=== PATIENT | female | born 1960 | race African-American/Black ===

== ENCOUNTER 2016-07-28 14:07 | Emergency (ER) | payer BC ==
[~2016-07-28 14:07] MED LIST: ACET500CAP PO; ASAB PO; CLARIT10 PO; FLONASE NAS; FLOVENT220 INH; FLOVENT44 INH; HYDROCHLOROT25 MG PO; HYDROCORT12 TOP; KEPPRA XR500 MG PO; KEPPRA1000 MG PO; KEPPRA500 PO; LAMICTAL10 PO; LOTE40 PO; LOTREL1 CA5 PO; NASONEX NAS; NEUR100 PO; NORCO1 TA1 PO; NORCO1 TAB PO; PREM625 PO; PROVENTSOL INH; PROVHFA INH; SYSTANE ULTR OPH; TEARS NATURA OPH; TUMS E-X750 M2 PO; VENTOLIN HFA INH; VIB50 PO; ZANTAC 150 PO; ZANTAC150 MG PO; ZANTAC300 MG PO
[2016-07-28 14:48] LABS: BASOPHILS 0.2 %; BASOPHILS ABSOLUTE 0.01 10/3/uL (0.0-0.16); EOSINOPHILS 3.9 %; HEMATOCRIT 32.9 % (36.0-48.0); HEMOGLOBIN 10.9 g/dL (12.0-16.0); IMMATURE GRANULOCYTES 0.2 %; IMMATURE GRANULOCYTES ABSOLUTE 0.01 10/3/uL (0.0-0.11); LYMPHOCYTES 29.3 %; LYMPHOCYTES ABSOLUTE 1.52 10/3/uL (0.67-4.30); MEAN CORPUS HGB CONC 33.1 g/dL (32.0-36.0); MEAN CORPUSCULAR HEMOGLOB 27.8 pg (26.0-34.0); MEAN CORPUSCULAR VOLUME 83.9 fL (80-100); MEAN PLATELET VOLUME 9.9 fL (9.2-13.0); MONOCYTES 9.3 %; MONOCYTES ABSOLUTE 0.48 10/3/uL (0.21-1.20); NEUTROPHILS 57.1 %; NEUTROPHILS ABSOLUTE 2.96 10/3/uL (2.02-8.40); PLATELET COUNT 309 10/3/uL (150-400); RBC DISTRIBUTION WIDTH 14.8 % (12.0-16.0); RED CELL COUNT 3.92 10/6/uL (4.0-5.6); WHITE BLOOD CELLS 5.2 10/3/uL (4.5-10.5)
[2016-07-28 14:49] LABS: MANUAL DIFF NO %
[2016-07-28 14:56] LABS: PROTIME (NOT ORD) 13.5 SEC (12.0-14.5)
[2016-07-28 16:06] LABS: ALBUMIN 3.2 G/DL (3.5-5.0); ALKALINE PHOSPHATASE 143 U/L (45-117); BUN (BLOOD UREA NITROGEN) 9 MG/DL (6-23); CHEST PAIN PROFILE TAT 0 Hrs 28 Mins; CHLORIDE, SERUM 110 MMOL/L (96-112); CO2 (CARBON DIOXIDE) 27 MMOL/L (24-34); CREATININE 0.92 MG/DL (0.55-1.02); DIRECT BILIRUBIN < 0.1 MG/DL (0.0-0.4); GFR AFRICAN AMERICAN 82 ML/MIN (>=60); GFR NON AFRICAN AMERICAN 71 ML/MIN (>=60); GLUCOSE, SERUM 82 MG/DL (60-99); INDIRECT BILIRUBIN(NOT ORDER) 0.1 MG/DL (0.1-0.9); POTASSIUM, SERUM 3.4 MMOL/L (3.5-5.3); SGOT(AST) 11 U/L (5-40); SGPT(ALT) 16 U/L (5-65); SODIUM, SERUM 144 MMOL/L (135-148); TOTAL BILIRUBIN 0.2 MG/DL (0-1.2); TOTAL PROTEIN 7.1 G/DL (6.0-8.5); TROPONIN I <0.02 NG/ML (<0.05)
[2016-07-28 17:12] LABS: ASCORBIC ACID (UR NOT ORDER) NEG (NEG); BILIRUBIN, URINE NEGATIVE (NEG); KETONE, URINE NEGATIVE (NEG); LEUKOCYTE ESTERASE(NOT OR LARGE (NEG); NITRITE (URINE) NEG (NEG); WBC (NOT ORDERED) (RFLEX) 8 (0-5)
== END 2016-07-28 17:38 | disposition home or self-care (01) ==
LOC: ER 14:07
PROVIDERS: Nurse Practitioner
DX: R51 Headache (principal); R53.1 Weakness; Z88.8 Allergy status to other drugs, medicaments and biological substances; Z79.899 Other long term (current) drug therapy; Z79.82 Long term (current) use of aspirin
CPT/HCPCS: 70450; 71010; 80048; 80076; 81001; 83690; 83735; 84484; 85025; 85610; 85730; 87086; 99285

== ENCOUNTER 2016-08-23 23:59 | Emergency (ER) | payer BC | END 2016-08-24 02:00 | disposition home or self-care (01) | LOC: ER 23:59 | DX: J32.9 Chronic sinusitis, unspecified (principal); I10 Essential (primary) hypertension; J45.909 Unspecified asthma, uncomplicated; K21.9 Gastro-esophageal reflux disease without esophagitis; Z88.6 Allergy status to analgesic agent; Z79.899 Other long term (current) drug therapy; Z79.82 Long term (current) use of aspirin | CPT/HCPCS: 99283 ==